=== PATIENT | male | born 1990 ===

== ENCOUNTER 2025-04-26 21:49 | Emergency (ER) | payer BC ==
[2025-04-26 23:39] VITALS: BP 133/78; PULSE 55
== END 2025-04-26 23:34 | disposition home or self-care (01) ==
LOC: MW.ED 21:49
DX: M84.374A Stress fracture, right foot, initial encounter for fracture (principal); W50.0XXA Accidental hit or strike by another person, initial encounter
CPT/HCPCS: 73630-26-RT; 73630-RT; 99283